=== PATIENT | male | born 1940 | race Caucasian/White ===

== ENCOUNTER 2022-05-02 13:04 | Outpatient (CLI) | payer MEDICARE, SELFPAY ==
--- NOTE | ~2022-05-02 | US_ITS ---
EXAMINATION: US renal BI DATE: 05/02/2022 13:41 INDICATION: RECURRENT UTI TECHNIQUE: Multiple grayscale and Doppler ultrasound images of the kidneys were obtained. COMPARISON: None. FINDINGS: The right kidney measures 12.1 x 5.8 x 5.5 cm. The left kidney measures 12.4 x 6.1 x 6.0 cm. The kidn eys demonstrate normal parenchymal echogenicity. There is mild left pelviectasis. The bladder is part ially filled. Bilateral ureteral jets. IMPRESSION: Mild left pelviectasis, otherwise unremarkable renal sonogram findings. Reviewed, dictated and finalized at location K. [facility] [employer]UID[facility] COUNSELOR
== END 2022-05-02 13:05 | disposition home or self-care (01) ==
PROVIDERS: Visit Provider Nurse Practitioner
DX: N39.0 Urinary tract infection, site not specified (principal); N28.89 Other specified disorders of kidney and ureter
CPT/HCPCS: 76775